=== PATIENT | female | born 1965 | race Caucasian/White ===

== ENCOUNTER → 2023-11-11 10:34 | Outpatient (REF) | payer OTHER, SELFPAY | LOC: RAD 10:34 | PROVIDERS: ATTENDING PHYSICIAN Family Medicine | DX: M25.551 Pain in right hip (principal); Z87.39 Personal history of other diseases of the musculoskeletal system and connective tissue; M48.061 Spinal stenosis, lumbar region without neurogenic claudication; I10 Essential (primary) hypertension | CPT/HCPCS: 73502; 73552 ==

== ENCOUNTER → 2025-05-20 11:04 | Outpatient (REF) | payer OTHER, SELFPAY | LOC: RAD 11:04 | PROVIDERS: ATTENDING PHYSICIAN Nurse Practitioner Family | DX: M25.561 Pain in right knee (principal) | CPT/HCPCS: 73564 ==